=== PATIENT | female | born 1980 | race Caucasian/White ===

== ENCOUNTER 2017-05-30 17:11 | Emergency (ER) | payer OTHER ==
[~2017-05-30] VITALS: Ht 170.2 cm; Wt 81.7 kg
[2017-05-30] MEDS ORDERED: ZYRTEC10 M5 PO (17:32)
[2017-05-30] MEDS ORDERED: BENADRYL25 MG PO (17:32)
[2017-05-30] MEDS ORDERED: UNICOMPLEX M TA1 TA1 PO (17:33)
[2017-05-30] MEDS ORDERED: SUDAFED 12 HOU120 MG PO (17:34)
[2017-05-30 17:51] LABS: ABSOLUTE EOSINOPHILS 0.2 thou/uL (0.0-0.7); ABSOLUTE LYMPHOCYTES 2.9 thou/uL (0.8-5.3); ABSOLUTE MONOCYTES 0.8 thou/uL (0.0-1.2); ABSOLUTE NEUTROPHILS 5.4 thou/uL (1.6-8.1); BASOPHILS 0.5 %; EOSINOPHILS 2.6 %; HEMATOCRIT 41.4 % (37.0-47.0); HEMOGLOBIN 14.2 gm/dL (12.0-15.0); MCH 33.8 pg (26.0-34.0); MCHC 34.2 g/dL (28.0-37.0); MCV 98.8 fL (80.0-100.0); MONOCYTES 8.5 %; MPV 8.5 fl. (7.2-11.1); NUCLEATED RBCS 0 /100WBC; PLATELET COUNT* 233 thou/uL (150-400); POLYS 57.4 %; RDW-CV 12.4 % (10.5-14.5); WBC 9.5 thou/uL (4.0-11.0)
[2017-05-30 18:00] LABS: ANION GAP 10 mmol/L (7-16); BUN 16 mg/dL (7-18); CALCIUM 9.1 mg/dL (8.5-10.1); CHLORIDE 102 mmol/L (98-107); CO2 27 mmol/L (21-32); CREATININE 0.8 mg/dL (0.6-1.3); GLUCOSE 101 mg/dL (70-99); POTASSIUM 3.9 mmol/L (3.5-5.1); SODIUM 139 mmol/L (136-145)
[2017-05-30 18:12] LABS: ALBUMIN 3.9 g/dL (3.4-5.0); ALKALINE PHOSPHATASE 71 U/L (46-116); LIPASE 78 U/L (73-393); NT-PRO BRAIN NAT PEPTIDE 26 pg/mL (<300); PROTIME 9.3 Seconds (9.20-11.50); SGOT 17 U/L (15-37); SGPT 27 U/L (30-65); TOTAL BILIRUBIN 0.3 mg/dL (<0.1-1.0); TOTAL PROTEIN 7.3 g/dL (6.4-8.2); TROPONIN-I LEVEL <0.06 ng/mL (<0.06)
[2017-05-30] MEDS ORDERED: ATIVAN0.5 MG PO (18:21)
[2017-05-30 18:45] VITALS: BP 126/77
--- NOTE | 2017-05-31 10:44 | EKG ---
[place] [address] ELECTROCARDIOGRAM REPORT Name: JULIANNA GREEN Room: [facility]#: [id number] Admission: 05/30/17 Attend Phys: Discharge: 05/30/17 Date of : 76 Report #: [id number] THIS REPORT FOR: //name// [facility] ED Test Date: 2017-05-30 Test Time: 17:21:03 Pat Name: JULIANNA GREEN Department: Room: Gender: F Manager Community Outreach: STUDENT : 1980 Requested By: Lucero Dela Cruz Order Number: [id number] MD: Huey Ribeiro Measurements Intervals [place] Rate: 69 P: 17 HI: 172 QRS: 39 QRSD: 107 T: 26 QT: 397 QTc: 426 Interpretive Statements Sinus rhythm septal q waves noted RSR' in V1 or V2, probably normal variant No previous ECG available for comparison Electronically Signed On 05-31-2017 10:44:09 MAPPING TECHNICIAN by Huey Ribeiro [email or web address] <ELECTRONICALLY SIGNED> By: Huey Ribeiro MD, [facility] 05/31/17 1044 20 20 Huey Ribeiro MD, [facility] /EPI
== END 2017-05-30 18:46 | disposition home or self-care (01) ==
LOC: M.ERS 17:11
PROVIDERS: Emergency Medicine
DX: R07.89 Other chest pain (principal); E78.00 Pure hypercholesterolemia, unspecified; F17.210 Nicotine dependence, cigarettes, uncomplicated